=== PATIENT | male | born 1960 | race Two or more races ===

== ENCOUNTER 2016-04-29 00:47 | Emergency (ER) | payer SELFPAY ==
[~2016-04-29] VITALS: Ht 167.6 cm; Wt 86.2 kg
--- NOTE | 2016-04-29 02:54 | Emergency Room Report ---
History of Present Illness General Chief Complaint: Alcohol Intoxication Source: Patient, EMS Present Illness HPI Is a 56-year-old male who is an alcoholic. He presents with a chief complaint of alcohol intoxication. [place] Bystander noticed that he did not have any shoes on. So bystander called 911. Patient has no complaint. Admit to drinking heavily tonight. Denies any nausea vomiting. Denies suicidal thought homicidal thought. Denies psychosis. Did not know why he is here. Allergies: Coded Allergies: No Known Allergies (Unverified , 04/29/16) Patient History Past Medical History: see triage record, old chart reviewed Past Surgical History: none Pertinent Family History: none Social History: Reports: alcohol use Immunizations: other Reviewed Nursing Documentation: PMH: Agreed, PSxH: Agreed Nursing Documentation-PMH Hx Diabetes: Yes Review of Systems Eye: Denies: blurred vision, eye pain ENT: Denies: ear pain, nose congestion, throat swelling Respiratory: Denies: cough, shortness of breath Cardiovascular: Denies: chest pain, palpitations Gastrointestinal: Denies: abdominal pain, diarrhea, nausea, vomiting Musculoskeletal: Denies: back pain, joint pain Skin: Denies: rash Neurological: Denies: headache, numbness Endocrine: Denies: increased thirst, increased urine Hematologic/Lymphatic: Denies: easy bruising All Other Systems: negative except mentioned in HPI Physical Exam Vital Signs Date Time Temp Pulse Resp B/P Pulse Ox O2 Delivery O2 Flow Rate FiO2 04/29/16 00:46 97.9 92 18 150/96 96 Room Air vitals hypertension Sp02 EP Interpretation: reviewed, normal General Appearance: well appearing, no apparent distress, alert, other - Intoxicated Head: normocephalic, atraumatic Eyes: bilateral eye EOMI, bilateral eye PERRL ENT: hearing grossly normal, normal pharynx Neck: full range of motion, supple, no meningismus Respiratory: chest non-tender, lungs clear, normal breath sounds Cardiovascular #1: regular rate, rhythm, no murmur Gastrointestinal: normal bowel sounds, non tender, no mass, no organomegaly, no bruit, non-distended Musculoskeletal: back normal, normal range of motion Neurologic: alert, oriented x3 Psychiatric: mood/affect normal Skin: warm/dry Medical Decision Making Diagnostic Impression: Primary Impression: Acute alcoholic intoxication Qualified Codes: F10.120 - Alcohol abuse with intoxication, uncomplicated ER Course Patient presents with alcohol intoxication. I will watch him until clinical sobriety. At that point patient be discharged home. No trauma to warrant CT scan or x-rays. Last Vital Signs Date Time Temp Pulse Resp B/P Pulse Ox O2 Delivery O2 Flow Rate FiO2 04/29/16 00:46 97.9 92 18 150/96 96 Room Air Status: improved Disposition: HOME, SELF-CARE Condition: Stable Referrals: NOT CHOSEN IPA/MD,REFERRING (PCP) Patient Instructions: Alcohol Intoxication, [place]ns[place] Additional Instructions: Abstain from drugs and alcohol. Followup with your Dr. in 7 days. Return if worse. RANJAN RAMON M.D. Apr 29, 2016 02:54
[2016-04-29 05:32] VITALS: BP 148/92
[2016-04-29 05:34] VITALS: BP 148/92
== END 2016-04-29 05:35 | disposition home or self-care (01) ==
LOC: EDBD 00:47 → EMR 00:59
DX: F10.129 Alcohol abuse with intoxication, unspecified (principal)
CPT/HCPCS: 99284